=== PATIENT | female | born 1950 ===

== ENCOUNTER 2017-05-05 09:14 | Day surgery (SDC) | payer MEDICARE, BC ==
[2017-05-05 10:37] VITALS: O2SAT 100
[2017-05-05 10:38] VITALS: BMI 27.2
[2017-05-05] MEDS ORDERED: Midazolam 2 MG/2 ML VIAL ONE (12:23)
[2017-05-05] MEDS ORDERED: Propofol 10 mg/ml Inj (20 ML) ONE ×2 (12:23→12:41)
[2017-05-05 12:55] VITALS: TEMP 97
[2017-05-05 13:45] VITALS: RESP 18
[2017-05-05 13:47] VITALS: BP 119/58; PULSE 62
== END 2017-05-05 13:45 | disposition home or self-care (01) ==
LOC: C.ENDO 09:14
PROVIDERS: ATTEND Internal Medicine Gastroenterology
DX: D12.2 Benign neoplasm of ascending colon (principal); K64.8 Other hemorrhoids
CPT/HCPCS: 45385; 82948; 88305; J2250; J2704; J3010

== ENCOUNTER 2017-08-26 09:29 | Day surgery (SDC) | payer MEDICARE ==
[2017-08-13 11:18] VITALS: BMI 27.4
[2017-08-26] MEDS ORDERED: Midazolam 2 MG/2 ML VIAL ONE (10:59)
[2017-08-26] MEDS ORDERED: Propofol 10 mg/ml Inj (20 ML) ONE (10:59)
[2017-08-26] MEDS ORDERED: HYDROmorphone 0.5 mg/0.5 ml ISec IVP PRN (12:09)
--- NOTE | 2017-08-26 12:42 | PCM.SURG1 ---
Surgeon's Initial Post Op Note - Surgeon's Notes Surgeon: Brittany Townsend MD Computer Technology Instructor: none Type of Anesthesia: General LMA Pre-Operative Diagnosis: Postmenopuasl bleeding, enodmetrial polyp Operative Findings: small anterverte dusut 8 weeks, 2 enodmeetiral polypoid lesisn within cavity adn small 0.5cm submucosal myomanoted close to cervical internal os, bilarel ostia vialuzed, cervcla stenosi, Post-Operative Diagnosis: submucosal myoma, same as abve Operation Performed: Hyseroscopic myomecotmy, endometrial polypecotmy, dilation adn curretage Specimen/Specimens Removed: submcuosmal myoma, endometrial polyp, endocervical currtting, endometiral colletings Estimated Blood Loss: EBL {In ML}: 5 Blood Products Given: N/A Drains Used: No Drains Post-Op Condition: Good Date of Surgery/Procedure: 08/26/17 Time of Surgery/Procedure: 12:42
[2017-08-26 13:15] VITALS: BP 120/83; PULSE 75; RESP 18; TEMP 98; O2SAT 100
--- NOTE | 2017-08-27 03:07 | OP ---
PROCEDURE DATE: 08/26/2017 SURGEON: Brittany Townsend MD DRAPERY CUTTER: None. TYPE OF ANESTHESIA: General. PREOPERATIVE DIAGNOSIS: Postmenopausal bleeding and endometrial polyp. OPERATIVE FINDINGS: Mild anteverted uterus of 8 weeks, two endometrial polyps and lesions within the cavity, and a small 0.5 cm submucosal myoma noted close to cervical internal os, bilateral ostia visualized, cervical stenosis. POSTOPERATIVE DIAGNOSIS: Submucosal myoma, endometrial polyp with abnormal uterine bleeding. OPERATION PERFORMED: Hysteroscopy, myomectomy, endometrial polypectomy, dilation and curettage. SPECIMEN SENT: Submucosal myoma, endometrial polyp, endometrial curettings, endocervical curettings. ESTIMATED BLOOD LOSS: 5 mL. BLOOD PRODUCTS: None. COMPLICATIONS: None. DESCRIPTION OF PROCEDURE: The patient was taken to the operating room where she was given general anesthesia. Once it was found to be adequate, she was positioned on the operating table in dorsal supine position with the legs supported using stirrups. The patient was then prepped and draped in the usual sterile fashion. A time-out was confirmed correct patient and correct procedure. Bimanual examination was performed with the above-mentioned findings. A red rubber catheter was then inserted into the urethra to drain the bladder clear urine was obtained. Following this, a Sidhu retractor was placed on the anterior and posterior fornix of the vagina. The cervix was adequately visualized and a single-tooth tenaculum was placed in the anterior lip of the cervix and the cervix appeared stenotic. Endocervical curettings were obtained with a Kevorkian curette and sent to pathology on [facility]. The uterus was then sounded carefully and the cervix was sequentially dilated with cervical dilator to allow for introduction of 5 mm hysteroscope under direct visualization using normal saline as a distention media. There was bilateral ostia visualized submucosal myoma. MyoSure device was then inserted under direct visualization and the masses were carefully resected and removed. Following this, a gentle curettage was done 360 degrees and the specimen sent to pathology labeled as endometrial curettings. All instruments were removed with good hemostasis noted at the tenaculum puncture site. At the end of the procedure, all needle, sponge, and instrument counts were noted and correct x2. The patient tolerated the procedure well and was transferred to the recovery room in stable condition. Brittany Townsend MD [facility] # [id number]
== END 2017-08-26 13:30 | disposition home or self-care (01) ==
LOC: C.SDS 09:29
PROVIDERS: ATTEND Obstetrics & Gynecology
DX: D25.0 Submucous leiomyoma of uterus (principal); N84.0 Polyp of corpus uteri; N95.0 Postmenopausal bleeding; E11.9 Type 2 diabetes mellitus without complications
CPT/HCPCS: 58561; 82948; 88305; J1100; J1885; J2001; J2250; J2405; J2704; J3010